=== PATIENT | female | born 1970 | race Caucasian/White ===

== ENCOUNTER 2017-08-07 14:22 | Emergency (ER) | payer MEDICAID, OTHER ==
[2017-08-07 14:38] VITALS: RESP 18; O2SAT 100
[2017-08-07 15:31] LABS: BASO # 0.1 K/uL (0.0-0.2); BASO % 1.1 % (0.0-2.0); EOS # 0.1 K/uL (0.0-0.7); EOS % 1.7 % (0.0-4.0); LYMPH # 1.9 K/uL (1.0-4.3); MEAN CORPUSCULAR HEMOGLOBIN 27.6 pg (27.0-31.0); MEAN CORPUSCULAR HGB CONC 33.9 g/dL (33.0-37.0); MEAN PLATELET VOLUME 9.1 fL (7.2-11.7); MONO # 0.4 K/uL (0.0-0.8); MONO % 8.1 % (0.0-10.0); NEUT # 2.5 K/uL (1.8-7.0); NEUT % 50.1 % (50.0-75.0); NRBC % 0.1 % (0.0-2.0); RBC 5.44 Mil/uL (3.80-5.20); RED CELL DISTRIBUTION WIDTH 13.8 % (11.5-14.5); WHITE BLOOD COUNT 4.9 K/uL (4.8-10.8)
[2017-08-07 15:33] LABS: MEAN CELL VOLUME 81.3 fL (81.0-99.0)
[2017-08-07 15:39] LABS: INR 1.1; PROTHROMBIN TIME 12.2 SECONDS (9.7-12.2)
[2017-08-07 15:44] LABS: BLOOD UREA NITROGEN 9 mg/dL (7-17); CALCIUM 9.6 mg/dl (8.6-10.4); GFR AFRICAN-AMERICAN > 60; GFR NON-AFRICAN AMERICAN > 60
--- NOTE | 2017-08-07 16:17 | C.PDOC ---
History Of Present Illness 46 yo female w/PMHx of Right leg chronic weakness, numbness secondary to "nerve damage", BIBA for evaluation of Right big toe discoloration and small open wounds to Right 2nd and 3toes gradually developed for past 2 weeks. Otherwise, pt denies fever, chills, known recent trauma or injury, denies CP, SOB, dyspnea , diaphoresis, palpitation, denies new weakness or sensory vascular deficits to Right foot. Pt admits, ambulatory with assistance of walker. Time Seen by Provider: 08/07/17 14:40 Chief Complaint (Nursing): Lower Extremity Problem/Injury History Per: Patient Past Medical History Reviewed: Historical Data, Nursing Documentation, Vital Signs Vital Signs: Last Vital Signs Temp 97.4 F L 08/07/17 14:32 Pulse 76 08/07/17 14:32 Resp 18 08/07/17 14:32 BP 135/86 08/07/17 14:32 Pulse Ox 100 08/07/17 16:41 - Medical History PMH: Asthma, Hypercholesterolemia Family History: States: No Known Family Hx - Social History Hx Tobacco Use: No Hx Alcohol Use: No Hx Substance Use: No - Immunization History Hx Tetanus Toxoid Vaccination: No Hx Influenza Vaccination: No Hx Pneumococcal Vaccination: No Review Of Systems Except As Marked, All Systems Reviewed And Found Negative. Constitutional: Negative for: Fever, Chills Eyes: Negative for: Redness Cardiovascular: Negative for: Chest Pain, Palpitations, Edema, Light Headedness Respiratory: Negative for: Cough, Shortness of Breath, Wheezing Gastrointestinal: Negative for: Nausea, Vomiting, Abdominal Pain Skin: Positive for: Lesions Neurological: Negative for: Altered Mental Status, Headache, Dizziness Physical Exam - Physical Exam Appears: Well, Non-toxic, No Acute Distress Skin: Normal Color, Warm Head: Normacephalic Eye(s): bilateral: PERRL Nose: No Flaring, No Discharge Oral Mucosa: Moist Neck: Trachea Midline, Supple Cardiovascular: Rhythm Regular, No Murmur, No JVD Respiratory: No Decreased Breath Sounds, No Accessory Muscle Use, No Stridor, No Wheezing Gastrointestinal/Abdominal: Soft, No Tenderness, No Distention, No Guarding Back: No CVA Tenderness Extremity: Normal ROM (B/L UEs and LLE), Other (Right foot: small area of balck skin discoloration to tip of 1st toe. Small open wounds to tip of Right 2nd and 3rd toe. Mild edema and erythema to drosum of Right foot. ) Neurological/Psych: Oriented x3, Normal Speech, Other (muscle wasting to Right leg) ED Course And Treatment - Laboratory Results Result Diagrams: 08/07/17 15:28 08/07/17 15:28 Lab Interpretation: No Acute Changes O2 Sat by Pulse Oximetry: 100 Pulse Ox Interpretation: Normal - CT Scan/US Doppler venous US Other Rad Studies (CT/US): Read By Radiologist CT/US Interpretation: (-) DVT to RLE Arterial Doppler US Other Rad Studies (CT/US): Read By Radiologist CT/US Interpretation: normal blood flow to Right leg Progress Note: Blood work, arterial/venous duplex of right lower extremity ordered and reviewed. On re-eval, pt is awake, alert, not in any apparent distress. Afebrile, hemodynamicaly stable. Non-toxic. PUlseOx 100% RA. neck : Supple, (-) JVD, (-) carotid bruits B/L. ENT: no acute findings. Lungs: CTA B/L, BS equal B/L. Abd: benign. RLE; exam c/w small open wound to tip of Right 1st,2nd and 3rd toes. No clelulitis. Blood work review and appears without acute abnormalities. Venous and Arterial Doppler odered, results review and appeas normal. Podiatry consult called. Pt was seen by podiatry resident, dressing applied to wound. As per Podiatry resident, pt has small open wounds to Right foot likely secondary to pressure/irritation from shoe. hx of chronic Right foot paresthesia. patient was advised by podiatry, ref. to f/ u with podiatry clinic in 2-3 days for further eval and tx. FYI: As per podiatry resident, pt reports, was seen 2 weeks ago at [facility], received abx, currently taking. Pt andvised and ref. to f/u with PMD, podiatry Clinic in 1-2 days for re-eavl. return to ED if any worsening or new changes. Pt understand, stabe for discharge now. Disposition Counseled Patient/Family Regarding: Studies Performed, Diagnosis, Need For Followup, Rx Given - Disposition Referrals: [facility] [Outside] Podiatry Clinic [Outside] Disposition: HOME/ ROUTINE Disposition Time: 17:02 Condition: STABLE Additional Instructions: KEEP DRESSING ON FOOT APPLIED FOLLOW UP WITH PODIATRY CLINIC HERE AT [facility] ON THURSDAY 12 NOON- 3PM FOR FURTHER EVALUATION AND TREATMENT RETURN TO ED IF ANY WORSENING OR NEW CHANGES. Instructions: Pressure Sores (DC) Forms: [employer] ([place]i) - Clinical Impression Clinical Impression: Pressure ulcer, PVD (peripheral vascular disease) - PA / [employer]MENT [employer] / Resident Statement MD/DO has reviewed & agrees with the documentation as recorded. - Scribe Statement The provider has reviewed the documentation as recorded by the Scribe Karen Guy All medical record entries made by the Nydiaibhugo were at my direction and personally dictated by me. I have reviewed the chart and agree that the record accurately reflects my personal performance of the history, physical exam, medical decision making, and the department course for this patient. I have also personally directed, reviewed, and agree with the discharge instructions and disposition.
--- NOTE | 2017-08-07 17:10 | CP.PCM.CON ---
History of Present Illness - History of Present Illness History of Present Illness: Podiatry Consult note for Dr. Salinas 46 year old female with pmhx including HLD, asthma was seen in the ED for complaint of right leg wounds. Patient states that a week ago she went to a hospital in [place] for the same problem and they gave her antibiotics. She admits that she is here for the same problem and that this has been going on for a long time. She admits to numbness and weakness to her lower extremities for years after having hip surgery. She denies any recent trauma to her foot. Currently denies any n/v/f/c/sob/cp. Past Patient History - Past Social History Smoking Status: Never Smoked - CARDIAC Hx Hypercholesterolemia: Yes - PULMONARY Hx Asthma: Yes - MUSCULOSKELETAL/RHEUMATOLOGICAL Hx Musculoskeletal Disorders: Yes - PSYCHIATRIC Hx Substance Use: No - SURGICAL HISTORY Hx Surgeries: Yes Other/Comment: HIP AND LEG SX Meds Allergies/Adverse Reactions: Allergies Allergy/AdvReac Type Severity Reaction Status Date / Time Penicillins Allergy Severe ANAPHYLAXIS Verified 08/07/17 14:38 Physical Exam - Constitutional Appears: Non-toxic, No Acute Distress - Extremities Exam Additional comments: lower extremity focused exam: Vasc: DP and PT pulses non-palpable. CFT > 3 seconds to all digits. Skin temperature is cool to cold from proximal to distal b/l. No edema noted Derm: Open ulcerations noted to the distal tips of digits 1,2,3,4 on the right foot, hallux and second toe have a granular/fibrotic base with some eschar, and digits 3,4 have eschar noted to distal tip, no drainage, no malodor, no purulence noted, no acute signs of infection noted Neuro: Gross sensation diminished b/l Ortho: limb length discrepancy noted with the right shorter than the left, muscle atrophy noted to right calf - Neurological Exam Neurological exam: Alert, Oriented x3 - Psychiatric Exam Psychiatric exam: Normal Affect, Normal Mood Results - Vital Signs Recent Vital Signs: Last Vital Signs Temp 97.4 F L 08/07/17 14:32 Pulse 76 08/07/17 14:32 Resp 18 08/07/17 14:32 BP 135/86 08/07/17 14:32 Pulse Ox 100 08/07/17 16:41 - Labs Result Diagrams: 08/07/17 15:28 08/07/17 15:28 Labs: Laboratory Results - last 24 hr 08/07/17 08/07/17 08/07/17 15:28 15:28 15:28 WBC 4.9 RBC 5.44 H Hgb 15.0 D Hct 44.2 MCV 81.3 D MCH 27.6 MCHC 33.9 RDW 13.8 Plt Count 353 MPV 9.1 Neut % (Auto) 50.1 Lymph % (Auto) 39.0 Owen % (Auto) 8.1 Eos % (Auto) 1.7 Baso % (Auto) 1.1 Neut # (Auto) 2.5 Lymph # (Auto) 1.9 Owen # (Auto) 0.4 Eos # (Auto) 0.1 Baso # (Auto) 0.1 PT 12.2 INR 1.1 APTT 33 Sodium 137 Potassium 4.1 Chloride 96 L Carbon Dioxide 29 Anion Gap 16 BUN 9 Creatinine 0.5 L Est GFR ( Amer) > 60 Est GFR (Non-Af Amer) > 60 Random Glucose 81 Calcium 9.6 Assessment & Plan - Assessment and Plan (Free Text) Assessment: 46 year old female with neuropathy and ulcerations to digits on right foot Plan: patient examined and evaluated discussed in detail with attending Dr Salinas labs, chart, vitals reviewed right foot dressed with xeroform, dsd patient to follow up in podiatry clinic in 2 weeks
[2017-08-07 17:31] VITALS: BP 149/84; PULSE 71; TEMP 98.3
--- NOTE | 2017-08-10 11:53 | VASCLAB ---
PROCEDURE: Right Lower Extremity Venous Duplex Exam. HISTORY: Right foot cold, skin ulcer PRIORS: None. TECHNIQUE: Right common femoral, femoral, popliteal and posterior tibial, peroneal and great saphenous veins were evaluated. Flow was assessed with color Doppler, compressibility, assessment of phasic flow and augmentation response. Report prepared by ROSIO Tomlinson, RVT FINDINGS: RIGHT: 1. Common Femoral Vein: 1.1. Compressibility - Fully compressible: Thrombus - None: Flow - Phasic: Augmentation -Normal: Reflux - None. 2. Femoral Vein: 2.1. Compressibility - Fully compressible: Thrombus - None: Flow - Phasic: Augmentation -Normal: Reflux - None. 3. Popliteal Vein: 3.1. Compressibility - Fully compressible: Thrombus - None: Flow - Phasic: Augmentation -Normal: Reflux - None. 4. Posterior Tibial Vein: 4.1. Compressibility - Fully compressible: Thrombus - None: Flow - Phasic: Augmentation -Normal: Reflux - None. 5. Peroneal Vein: 5.1. Compressibility - Fully compressible: Thrombus - None: Flow - Phasic: Augmentation -Normal: Reflux - None. 6. Great Saphenous Vein: 6.1. Compressibility - Fully compressible: Thrombus -None: Flow - Phasic: Augmentation - Normal: Reflux - None. OTHER FINDINGS: IMPRESSION: No evidence of deep or superficial vein thrombosis of the right lower extremity with excellent venous flow. Normal valve function noted of the right side. Normal venous flow noted in the left common femoral vein.
--- NOTE | 2017-08-10 11:54 | VASCLAB ---
PROCEDURE: HISTORY: Right foot cold, skin ulcer COMPARISON: None available. TECHNIQUE: Grayscale and duplex Doppler evaluation of the right common femoral, femoral, profunda femoral, popliteal, posterior tibial, anterior tibial and dorsalis pedis arteries was performed. Report prepared by Justin Tidwell, BS, RVT FINDINGS: RIGHT LOWER EXTREMITY: * Common Femoral Artery: Peak Systolic Velocity - 239: Doppler Waveform: Triphasic.: Plaque description - * Profunda Femoral Artery: Peak Systolic Velocity - 127: Doppler Waveform: Triphasic.: Plaque description - * Femoral Artery o Proximal Segment: Peak Systolic Velocity - 131: Doppler Waveform: Triphasic.: Plaque description - o Middle Segment: Peak Systolic Velocity - 113: Doppler Waveform: Triphasic.: Plaque description - o Distal Segment: Peak Systolic Velocity - 134: Doppler Waveform: Triphasic.: Plaque description - * Popliteal Artery o Proximal Segment: Peak Systolic Velocity - 94: Doppler Waveform: Triphasic.: Plaque description - o Middle Segment: Peak Systolic Velocity - 90: Doppler Waveform: Triphasic.: Plaque description - o Distal Segment: Peak Systolic Velocity - 74: Doppler Waveform: Triphasic.: Plaque description - * Posterior Tibial Artery: Peak Systolic Velocity - 63: Doppler Waveform: Triphasic.: Plaque description - * Anterior Tibial Artery: Peak Systolic Velocity - 92: Doppler Waveform: Triphasic.: Plaque description - * Dorsalis Pedis Artery: Peak Systolic Velocity - 58: Doppler Waveform: Triphasic.: Plaque description - OTHER FINDINGS: None. IMPRESSION: RIGHT: 30-49% stenosis of right common femoral artery. There is no evidence of hemodynamically significant arterial insufficiency in the remaining right lower extremity arteries.
== END 2017-08-07 18:10 | disposition home or self-care (01) ==
LOC: C.ER 14:22
DX: L97.519 Non-pressure chronic ulcer of other part of right foot with unspecified severity (principal); G62.9 Polyneuropathy, unspecified